=== PATIENT | female | born 1985 | race Caucasian/White ===

== ENCOUNTER → 2017-08-11 09:04 | Outpatient (CLI) | payer SELFPAY ==
[2017-08-11 10:51] LABS: Mean Corp Hgb Conc 34.3 g/gl (32-36); Mean Corpuscular Hgb 32.9 pg (27.0-32.0); Mean Corpuscular Volume 95.9 fL (81-99); Mean Platelet Vol. 10.8 fl (6.2-12.0); Platelet Count 235 K/mm3 (150-450); RBC Distribution Width CV 12.2 % (11.6-14.6); RBC Distribution Width SD 41.3 fl (35.1-43.9); Red Blood Count 3.65 M/mm3 (4.2-5.4); White Blood Count 8.1 K/mm3 (4.4-11.0)
[2017-08-11 10:52] LABS: Scan Indicated on CBC? Y/N NO
[2017-08-11 10:53] LABS: Glucose Challenge Gest 1H 50g 65 mg/dL (70-140)
== END ==
PROVIDERS: Visit Provider Obstetrics & Gynecology
DX: Z34.83 Encounter for supervision of other normal pregnancy, third trimester (principal); Z3A.00 Weeks of gestation of pregnancy not specified
CPT/HCPCS: 36415; 82950; 85027

== ENCOUNTER → 2017-10-06 11:59 | Outpatient (CLI) | payer SELFPAY ==
[2017-10-06 14:08] LABS: Group B Strep DNA By PCR Negative (Negative); Internal Control PASS; Probe Check PASS; Specimen Processing Control PASS
== END ==
PROVIDERS: Visit Provider Obstetrics & Gynecology
DX: Z36.85 Encounter for antenatal screening for Streptococcus B (principal)
CPT/HCPCS: 87081; 87653

== ENCOUNTER 2017-10-27 12:25 | Inpatient (IN) | payer SELFPAY ==
[2017-10-27 12:35] VITALS: BMI 27.0
[2017-10-27] MEDS: Lactated Ringers 1,000 ML 50 ML IV ×3 (12:50→15:31)
[2017-10-27 13:20] LABS: Hematocrit 34.9 % (37-47); Hemoglobin 11.6 g/dl (12.0-15.0); Mean Corp Hgb Conc 33.2 g/gl (32-36); Mean Corpuscular Hgb 31.5 pg (27.0-32.0); Mean Corpuscular Volume 94.8 fL (81-99); Mean Platelet Vol. 11.3 fl (6.2-12.0); Platelet Count 214 K/mm3 (150-450); RBC Distribution Width CV 13.2 % (11.6-14.6); RBC Distribution Width SD 45.3 fl (35.1-43.9); Red Blood Count 3.68 M/mm3 (4.2-5.4); White Blood Count 8.9 K/mm3 (4.4-11.0)
[2017-10-27 13:21] LABS: Scan Indicated on CBC? Y/N NO
[2017-10-27] MEDS: fentaNYL-bupivacaine (epidural) 100 ML BAG EPIDURAL (13:55)
[2017-10-27] MEDS: Oxytocin 30 units/NS 500 ml 30 UNITS/500 ML IV.SOLN IV (14:45)
[2017-10-27] MEDS: Oxytocin 30 units/NS 500 ml 30 UNITS/500 ML IV.SOLN 334 UNITS IV (16:57)
--- NOTE | 2017-10-27 17:32 | PCM.OB.VAG ---
Vaginal Delivery Maternal Presentation: Active Labor 39 3/7 wk EGA Active labor Amniotic Membrane Rupture Type: Artificial Amniotic Fluid Description: Clear Final CHRISTINA: 10/31/17 Gestational age: 39 Weeks and 3 Days Date of Procedure: 10/27/17 Pre-Operative Diagnosis: 39 3/7 wk early labor Post-Operative Diagnosis: Same Surgery/ Procedure Performed: Spontaneous Vaginal Delivery Type of Anesthesia: Epidural Description of Procedure: Epidural in place, effective. Pt feeling pressure. Burying her head in pillows reluctant to push as is speaking to her in [place] greek. of a bee viable male over intact perineum. Head delivered TERESA. Shoulders delivered easily. OP and nares bulb suctioned after shoulders delivered. Baby with spont vigorous cry and good tone to maternal abdomen. Cord clamp delayed then clamped x two and cut. PP exam : no lacerations. Abrasion at posterior perineum, dry and no repair required. Placenta delivered by spont expulsion, expression. 3V cord, normal appearing and intact with trailing membranes EBL 250 cc Pt and infant tolerated delivery well. To recovery , stable condition. Ray Cleveland counts correct x two. Presentation: Vertex, TERESA Placental Delivery Description: Spontaneous Placenta Disposition: [facility] Cord Vessel Description: 3 Vessels Cord Entanglement: None Estimated Blood Loss: 250 Infant A gender: Male (1 minute): 8 (5 minute): 9 Episiotomy Description: None Laceration: None Medications given after delivery: IV Pitocin Complications: None
--- NOTE | 2017-10-27 17:38 | OP.PCM_ITS ---
Vaginal Delivery Maternal Presentation: Active Labor 39 3/7 wk EGA Active labor Amniotic Membrane Rupture Type: Artificial Amniotic Fluid Description: Clear Final CHRISTINA: 10/31/17 Gestational age: 39 Weeks and 3 Days Date of Procedure: 10/27/17 Pre-Operative Diagnosis: 39 3/7 wk early labor Post-Operative Diagnosis: Same Surgery/ Procedure Performed: Spontaneous Vaginal Delivery Type of Anesthesia: Epidural Description of Procedure: Epidural in place, effective. Pt feeling pressure. Burying her head in pillows reluctant to push as is speaking to her in [place]. of a bee viable male over intact perineum. Head delivered TERESA. Shoulders delivered easily. OP and nares bulb suctioned after shoulders delivered. Baby with spont vigorous cry and good tone to maternal abdomen. Cord clamp delayed then clamped x two and cut. PP exam : no lacerations. Abrasion at posterior perineum, dry and no repair required. Placenta delivered by spont expulsion, expression. 3V cord, normal appearing and intact with trailing membranes EBL 250 cc Pt and infant tolerated delivery well. To recovery , stable condition. Ray Cleveland counts correct x two. Presentation: Vertex, TERESA Placental Delivery Description: Spontaneous Placenta Disposition: [facility] Cord Vessel Description: 3 Vessels Cord Entanglement: None Estimated Blood Loss: 250 Infant A gender: Male (1 minute): 8 (5 minute): 9 Episiotomy Description: None Laceration: None Medications given after delivery: IV Pitocin Complications: None
--- NOTE | 2017-10-27 17:41 | PCM.DCVAG ---
Discharge Diet: No Restrictions Discharge Activity: May Shower, May Take a Tub Bath May resume sexual activity in: 4-6 weeks Additional Activity Instructions:: Nothing in the vagina for 4-6 weeks. You may return to work/school in 6 weeks. Additional Instructions: If you experience any of the following, contact your healthcare provider. Bleeding that soaks a pad every hour for 2 hours Fever 100.4 or higher Unrelieved abdominal pain Problems urinating (including inability to urinate or burning while urinating). Visual changes Severe headache Flu-like symptoms Pain or redness in one of both of your breasts Pain, warmth, tenderness or swelling in your legs, especially the calf area Frequent nausea and vomiting Symptoms of depression or anxiety If you experience any of the following, call 911 or go to the nearest Emergency Room. Chest pain Problems breathing Seizure activity Partial or complete paralysis of a body part, slurred speech, weakness or drooping of the face, or a sudden inability to walk or hold your balance Allergies/Adverse Reactions: Allergies No Known Drug Allergies Allergy (Verified 12/07/14 07:24) Other Medications to take at Discharge Vits [Prenatabs FA] 1 tablet PO DAILY 12/07/14 Orders to be completed after discharge: Electric breast pump Time Frame: 1 Year, Location: None Selected Please Follow Up With: Toshia Thakur MD - [phone] When: Call to make an appointment with your doctor in 6 weeks. Primary Care Physician: Care Physician,No Primary [Primary Care Provider] - Proposed Discharge Date: 10/29/17
--- NOTE | 2017-10-27 17:42 | DCINST_ITS ---
Discharge Diet: No Restrictions Discharge Activity: May Shower, May Take a Tub Bath May resume sexual activity in: 4-6 weeks Additional Activity Instructions:: Nothing in the vagina for 4-6 weeks. You may return to work/school in 6 weeks. Additional Instructions: If you experience any of the following, contact your healthcare provider. * Bleeding that soaks a pad every hour for 2 hours * Fever 100.4 or higher * Unrelieved abdominal pain * Problems urinating (including inability to urinate or burning while urinating) . * Visual changes * Severe headache * Flu-like symptoms * Pain or redness in one of both of your breasts * Pain, warmth, tenderness or swelling in your legs, especially the calf area * Frequent nausea and vomiting * Symptoms of depression or anxiety If you experience any of the following, call 911 or go to the nearest Emergency Room. * Chest pain * Problems breathing * Seizure activity * Partial or complete paralysis of a body part, slurred speech, weakness or drooping of the face, or a sudden inability to walk or hold your balance Allergies/Adverse Reactions: Allergies No Known Drug Allergies Allergy (Verified 12/07/14 07:24) Other Medications to take at Discharge Vits [Prenatabs FA] 1 tablet PO DAILY 12/07/14 Orders to be completed after discharge: Electric breast pump Time Frame: 1 Year, Location: None Selected Please Follow Up With: Toshia Thakur MD - [phone] When: Call to make an appointment with your doctor in 6 weeks. Primary Care Physician: Care Physician,No Primary [Primary Care Provider] - Proposed Discharge Date: 10/29/17
--- NOTE | 2017-10-27 18:49 | NURSING ---
Pt resides in [facility]
[2017-10-27 19:37] VITALS: BP 115/70; PULSE 80; RESP 18; TEMP 37.3; O2SAT 99
[2017-10-28 00:06] VITALS: BP 93/54; PULSE 67; RESP 18; TEMP 36.8; O2SAT 98
[2017-10-28] MEDS: Ibuprofen 600 MG Tablet PO (00:23)
[2017-10-28 05:10] VITALS: BP 102/59; PULSE 71; RESP 18; TEMP 36.4
--- NOTE | 2017-10-28 07:41 | PCM.PN.OB ---
Subjective: PPD#1 Doing well. Asking about getting her tubes tied. No further childbearing desired. Baby is nursing well. Sates he is quiet. Would like to go home today if baby is released. - Physical Exam General: Alert, Oriented x3, Cooperative, No apparent distress HEENT: Atraumatic Neck: Supple Abdomen: Soft - Fundus firm NT at 1-2 cm inferior to umbilicus Neurological: Cranial nerves II-XII grossly intact Psych/Mental Status: Normal Affect Vital Signs Temp Pulse Resp BP Pulse Ox 97.6 F L 71 18 102/59 L 98 10/28/17 05:10 10/28/17 05:10 10/28/17 05:10 10/28/17 05:10 10/28/17 00:06 Oxygen Delivery Method Room Air Weight: 67 kg Body Mass Index (BMI) 27.0 Intake and Output for Last 24 Hours 10/26/17 10/27/17 10/28/17 23:59 23:59 23:59 Intake Total 2800 / 2800 Output Total 2500 / 2500 500 / 500 Balance 300 / 300 -500 / -500 Laboratory Tests Past 24 Hrs 10/27/17 10/27/17 13:05 13:05 WBC 8.9 RBC 3.68 L Hgb 11.6 L Hct 34.9 L MCV 94.8 MCH 31.5 MCHC 33.2 RDW 13.2 RDW Differential 45.3 H Plt Count 214 MPV 11.3 Blood Type A POSITIVE Antibody Screen NEGATIVE Medical Necessity - Tobacco Use Smoking Status: Never smoker Assessment/Plan PPD#1 Stable pp. Requests dischg today. RTO in 6 wk for PP check, prn sooner. Plans BTO.
[2017-10-28] MEDS: Prenatal Vits Tablet 1 TABLET PO (12:18)
[2017-10-28 13:13] VITALS: BP 116/64; PULSE 67; RESP 18; TEMP 36.7
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
[2017-10-28 16:00] VITALS: BP 138/61; PULSE 70; RESP 16; TEMP 36.8
== END 2017-10-28 18:00 | disposition home or self-care (01) | DRG 775 ==
PROVIDERS: Admitting Provider Obstetrics & Gynecology; Visit Provider Obstetrics & Gynecology
DX: O80 Encounter for full-term uncomplicated delivery (principal); Z37.0 Single live birth; Z3A.39 39 weeks gestation of pregnancy
CPT/HCPCS: 59025; 59050; 85027; 86850; 86900; 99218; J7120; G0378

== ENCOUNTER → 2017-12-04 11:38 | Outpatient (CLI) | payer SELFPAY ==
[2017-12-04 13:50] LABS: Hematocrit 38.9 % (37-47); Mean Corp Hgb Conc 33.4 g/gl (32-36); Mean Corpuscular Volume 92.6 fL (81-99); Mean Platelet Vol. 10.5 fl (6.2-12.0); Platelet Count 218 K/mm3 (150-450); RBC Distribution Width CV 12.2 % (11.6-14.6); RBC Distribution Width SD 41.8 fl (35.1-43.9); White Blood Count 6.6 K/mm3 (4.4-11.0)
[2017-12-04 13:55] LABS: Scan Indicated on CBC? Y/N NO
== END ==
PROVIDERS: Visit Provider Obstetrics & Gynecology
DX: R42 Dizziness and giddiness (principal); R55 Syncope and collapse
CPT/HCPCS: 36415; 85027

== ENCOUNTER 2018-12-07 10:20 | Day surgery (SDC) | payer SELFPAY ==
--- NOTE | 2018-11-21 02:39 | HP.PCM_ITS ---
History and Physical Date of Admission: 11/21/18 Edie Stephens Date of : 1985 HISTORY OF PRESENT ILLNESS: On 11/18/2018, Edie Stephens, a 33 year old female 5 0 0 0 5, presented for: -- Pre-Op Edie is being seen for pre op visit. Pt is having Lap bilateral Salpingectomy on 11-25-18. Medications and allergies are up to date. AM As above. Here for preop appointment for planned laparoscopic bilateral salpingectomy. She is asking multiple questions. She is self pay and is now considering an IUD instead of bilateral tubal ligation. She has not been able to tolerate pelvic exams in the office and we discussed this. Spouse is unwilling to have vasectomy, which of the sterilization procedures would be less expensive. After more prolonged discussion at the time of her preop appt, discussion of R,B,A of the laparoscopic bilateral salpingectomy and R,B,A of the Liletta and Paragaurd IUDs she is uncertain re the method she will chose. Spouse is asking how late he can pay the package sutton for surgery. (advised him to check with the [facility] re this) They will take the weekend to decide on either the IUD or surgical sterilization. EB ALLERGIES: NKDA MEDICATIONS HISTORY: Patient is also takin. Calcium 500 500 mg calcium (1,250 mg) tablet,chewable, PRN REVIEW OF SYSTEMS: GENERAL - Denies fever, or chills SKIN - Denies skin changes EYES - Denies visual changes EARS - Denies difficulty hearing NOSE - Denies nasal congestion or bleeding MOUTH - Denies sore throat or difficulty swallowing NECK - Denies pain or swelling RESPIRATORY - Denies shortness of breath or wheezing CARDIOVASCULAR - Denies palpitations or chest pain GASTROINTESTINAL - Denies nausea, vomiting, diarrhea, constipation GENITOURINARY - Denies dysuria, frequency of urination, incontinence of urine MUSCULOSKELETAL - Denies joint or muscle pain NEUROLOGICAL - Denies localized numbness or weakness PSYCHIATRIC - Denies depression or anxiety ENDOCRINE - Denies heat or cold intolerance, weight loss or gain HEMATO-IMMUNOLOGIC - Denies excessive bleeding with cuts SURGICAL HISTORY: 1. none MENSTRUAL HISTORY: LMP Known?- Approximate-Month KnownAmount/Duration - 7 days, Regularity - Regular, LMP - 10/16/18, Age Onset Menarche - 12 FAMILY HISTORY: Father - FH: Cardiomyopathy; Mother - Unknown Disease; Brother - FH: Cardiomyopathy; Sister - FH: Cardiomyopathy; Paternal Cousin - FH: Cardiomyopathy; Paternal Grandparent - FH: Cardiomyopathy; SOCIAL HISTORY: Alcohol Use - None Smoking - Never Diet - moderate, balanced diet and caffeine < 2 drinks per day Lifestyle - Exercise - none Seat Belt Use - always Employer - Homemaker Illicit Drug Use - denies use of street drugs Sexual Activity - Residence - lives w and three children Spouse-Sig Other Name - Jose Spouse-Sig Other Occupation - Self-employed - [employer] work Spouse-Sig Other Phone No - [phone] message Children Name(s) - Zully Reed ' (EB), Linda (liver transplant- biliary atresia) ' EB, Guero (EB) , Daljit Control - PHYSICAL EXAMINATION BP- 110/90 Sitting, Right arm, regular cuff Temp- 98.3 Taken Orally Weight- 131.40 lbs Height- 62.25 inch BMI:23.89 CONSTITUTIONAL - NAD, well nourished, and well developed HEENT - Normocephalic, PERRLA, EOMI NECK - no nuchal rigidity LUNGS - clear to auscultation CARDIAC - normal s1, normal s2, no s3 EXTREMITIES - No edema or calf tenderness NEUROLOGICAL - cranial nerves 2-12 intact PSYCHIATRIC - A and O to time, place, person, mood and affect ASSESSMENT: 1. Encounter For Sterilization 2. Other Specified Counseling PLAN BY DIAGNOSIS: 1. Encounter For Sterilization and Other Specified Counseling Reviewed Laparoscopic BTF, BTL (Filshie clips) and bilateral salpingectomy with potential benefit of salpingectomy to further decrease risk of ovarian cancer All questions re anticipated preop, operative and postop recovery including activity restrictions answered to patient's satisfaction. Consents signed and on chart. Still deciding on surgical sterilization vs an IUD (either Paragard, or liletta) Reminded Edie of the need for prolonged pelvic exam with IUD placement. She has not tolerated even pap smears or cervical checks easily in the office and given this the IUDs are not a good option for her Will take the weekend of November 20-2018 to decide regarding her method of contraception. If opts for laparoscopic bilateral salpingectomy, keep surgical appt as scheduled. If opts for IUD: will likely need po sedation to accomplish this. Written information/ pamphlets given on both Paragard and Liletta. Reviewed potential R,B,A of each of these. She is advised further that the Paragard may give heavy and more painful periods. The Liletta may contribute to her moodiness (though very low systemic progesterone). Visit was approximately 25 minutes with most of the time spent in discussion and counseling.
[2018-12-07 10:54] LABS: Internal QC Validated? YES +Cl - CLEAR BKGD; Pregnancy, Urine Negative Negative
[2018-12-07 10:59] VITALS: BP 123/81; PULSE 82; RESP 16; TEMP 37; O2SAT 100; BMI 24.2
--- NOTE | 2018-12-07 11:50 | PCM.DC.TUB ---
Discharge Diet: No Restrictions Discharge Activity: May Shower, May Take a Tub Bath Return to work on:: 12/09/18 Additional Activity Instructions:: Ambulate often the next week after surgery. Nothing in the vagina for 5 days. Call your doctor if you observe: Fever of 101 or Higher, Uncontrolled pain Change Dressing in (Days):: 4 Remove Dressing in (days):: 4 Cleanse incision/area with: Soap & Water, Keep Dressing Clean & Dry Additional Instructions: You may resume activity as you are comfortable after surgery-- after resting for the first day. You may have abdominal pain, gassiness or pain in your right shoulder and this normally resolves within 24-72 hrs. Take pain medication as needed for pain. Tylenol 1-2 extra strength 500 mg tabs every 8 hrs as needed. May also take EITHER two Aleve or three Ibuprofen (Advil, Motrin) every 8 hr for pain. Take the Oxycodone for more severe pain only. Allergies/Adverse Reactions: Allergies No Known Drug Allergies Allergy (Verified 12/07/18 10:50) Other Medications to take at Discharge Calcium Carbonate [Calcium] 600 mg PO DAILY 11/18/18 Magnesium 200 mg PO DAILY 11/18/18 Vitamin B Complex 1 each PO DAILY 11/18/18 Oxycodone [Oxyir] 5 mg PO Q6H PRN PRN 4 Days #12 tablet 12/07/18 The following prescriptions were given: Oxycodone [Oxyir] 5 mg PO Q6H PRN PRN 4 Days #12 tablet PRN Reason: Mod-Severe Pain (4-10/10) Primary Care Physician: Care Physician,No Primary [Primary Care Provider] - Test Results: Test results from this visit will be discussed in further detail at your follow-up appointment, if applicable. Please Follow Up With: Toshia Thakur MD - [phone] When: Make appointment for postop incision check for 1-3 wk after surgery Proposed Discharge Date: 12/07/18
--- NOTE | 2018-12-07 11:55 | DCINST_ITS ---
Discharge Diet: No Restrictions Discharge Activity: May Shower, May Take a Tub Bath Return to work on:: 12/09/18 Additional Activity Instructions:: Ambulate often the next week after surgery. Nothing in the vagina for 5 days. Call your doctor if you observe: Fever of 101 or Higher, Uncontrolled pain Change Dressing in (Days):: 4 Remove Dressing in (days):: 4 Cleanse incision/area with: Soap & Water, Keep Dressing Clean & Dry Additional Instructions: You may resume activity as you are comfortable after surgery-- after resting for the first day. You may have abdominal pain, gassiness or pain in your right shoulder and this normally resolves within 24-72 hrs. Take pain medication as needed for pain. Tylenol 1-2 extra strength 500 mg tabs every 8 hrs as needed. May also take EITHER two Aleve or three Ibuprofen (Advil, Motrin) every 8 hr for pain. Take the Oxycodone for more severe pain only. Allergies/Adverse Reactions: Allergies No Known Drug Allergies Allergy (Verified 12/07/18 10:50) Other Medications to take at Discharge Calcium Carbonate [Calcium] 600 mg PO DAILY 11/18/18 Magnesium 200 mg PO DAILY 11/18/18 Vitamin B Complex 1 each PO DAILY 11/18/18 Oxycodone [Oxyir] 5 mg PO Q6H PRN PRN 4 Days #12 tablet 12/07/18 The following prescriptions were given: Oxycodone [Oxyir] 5 mg PO Q6H PRN PRN 4 Days #12 tablet PRN Reason: Mod-Severe Pain (4-10/10) Primary Care Physician: Care Physician,No Primary [Primary Care Provider] - Test Results: Test results from this visit will be discussed in further detail at your follow- up appointment, if applicable. Please Follow Up With: Toshia Thakur MD - [phone] When: Make appointment for postop incision check for 1-3 wk after surgery Proposed Discharge Date: 12/07/18
--- NOTE | 2018-12-07 12:00 | FALS_PTH ---
PATIENT: CHERI SHINE LOC: [facility] U#:[id number] AGE/SX: 33/F ROOM: RE12/07/[address]: Dr. Toshia Thakur MD : 1985 BED: DIS: 12/07/2018 SPEC #: [id number] RECD: 12/07/18 13:03 STATUS: ARCHANA SHERINE #: [id number] SHIVA: 12/07/18 12:[address]: Toshia Thakur DEPT: SURGICAL PATHOLOGY RECD BY: Sushant Matt ENTERED: 12/07/18 13:48 SP TYPE: FALL TUBES OTHR DR: No Primary Care Phys Tissues: Fallopian tube Procedures: Surgery Specimen Level II HEADER OPERATION: Laparoscopic salpingectomy PRE-OP DIAGNOSIS: Patient requests sterilization TISSUE SUBMITTED: Bilateral fallopian tubes MICROSCOPIC DIAGNOSIS Bilateral fallopian tubes, salpingectomy: Bilateral fallopian tubes including fimbrial ends, no pathologic diagnosis. SJ:stephanie 12/08/18 MICROSCOPIC DESCRIPTION Slides are reviewed. GROSS DESCRIPTION Received is one container labeled with the patient's name and designated bilateral fallopian tubes. The specimen consists of bilateral fallopian tubes including fimbrial ends in multiple pieces. One of the segments shows fimbrial end and measures 3.5 cm in length and 0.6 cm in diameter. The second segment of fallopian tube without the fimbrial end measures 3.5 cm in length and 0.5 cm in diameter. The third piece without fimbrial end measures 4.5 cm in length and 0.5 cm in diameter. The two smaller pieces with fimbrial end measures in aggregate 2 x 1 x 0.5 cm. Industrial Hygiene Technician sections from all four pieces are submitted in two cassettes. / SJ:stephanie 12/07/18 TC:4 [facility]: [id number] x2
[2018-12-07] MEDS: Bupiv/Epi 0.5% Mpf 30 ML Vial (12:25)
--- NOTE | 2018-12-07 12:31 | PCM.OPRPT ---
Report of Operation Date of Procedure: 12/07/18 Pre-Operative Diagnosis: sterilization request Post-Operative Diagnosis: same Surgery/Procedure Performed:: Laparoscopic bilateral salpingectomy Description of Surgical Findings:: Findings: There is a normal-appearing retroverted uterus. Fallopian tubes and ovaries are within normal limits. Gross inspection of the bowel, omentum, liver edge are also within normal limits. Photos were taken of the uterus and ovaries after the bilateral partial salpingectomy, and of the right upper quadrant/liver edge. boilermaker welder: Kassandra Cardona Type of Anesthesia:: General Anesthesiologist: Herlinda Conley CRNA Specimen's removed: Bilateral fallopian tubes Drains: red montalvo prior to case Estimated Blood Loss (mL): 20 cc Fluids Replaced: LR Description of Procedure: Narrative account: After the risks, benefits, alternatives of the procedure have been reviewed with the patient, informed consent was obtained. The patient was taken to the operating room with an IV running. She was positioned on the operating table in dorsal supine position, where she was given general anesthesia. Once asleep she was repositioned into the dorsal lithotomy position and prepped and draped in the usual sterile fashion. A red Montalvo catheter was used to drain the bladder prior to initiating the case. A single-toothed tenaculum and Georgie cannula were placed into the cervix to allow manipulation of the cervix and uterus during the case. Attention was then turned to the anterior abdominal wall where 0.5% percent Marcaine with epinephrine was instilled at the suprapubic and infraumbilical skin and at a point midway between the two, in the midline. Skin incisions were then created in the midline at the suprapubic skin, at the infraumbilical skin, and at a point in the midline midway between the two. While maintaining upward traction of the anterior abdominal wall, a Veress needle was inserted through the umbilical incision into the peritoneal cavity. There was free drop of saline, low opening pressure and free flow of CO2 noted. Once the intra-abdominal pressure had reached 12 mmHg the Veress needle was removed and a bladeless 5 mm trocar was inserted through the infraumbilical skin incision into the peritoneal cavity. Correct placement was confirmed using the scope. Under direct visualization then with the patient in Trendelenburg position, a bladeless 5 mm trocar was inserted in through the suprapubic skin incision into the peritoneal cavity and at the midlower abdominal incision midway between the infraumbilical and suprapubic trochars. The uterus was anteverted and both ovaries and fallopian tubes were within normal limits. The left fallopian tube was grasped and retracted medially and using a LigaSure device the right fallopian tube was excised from the ovary and mesosalpinx to the level of the uterine fundus. Excellent hemostasis was noted at the excision site. The left fallopian tube was brought through the suprapubic trocar and set aside for later pathology review. There was some bleeding noted at the exicison site of the L fallopian tube near the left ovary. This area was grasped and sealed with the Ligasure device. Excellent hemostasis was then noted. In a similar manner the right fallopian tube was grasped and retracted medially and the fallopian tube was excised and removed from the abdominal cavity through the suprapubic trocar. The fallopian tubes were sent to pathology. Excellent hemostasis was noted by visualization of the pelvis, ovaries, and remaining mesosalpinx. The pelvis was irrigated. The surgical pedicles were dry. Mp was applied for additional hemostasis. Photos were taken of the uterus and bilateral remaining ovaries and of the right upper quadrant and liver edge. At this point the procedure was terminated. The pneumoperitoneum was reduced and the instruments and trochars were removed from the anterior abdominal wall skin. The skin incisions were closed with 4-0 Monocryl in a subcuticular fashion Dermabond and op sites were applied to the skin. The single-toothed tenaculum and Georgie cannula were then removed from the vagina. The patient was returned to dorsal supine position. She was awakened from general anesthesia. She was transferred to the recovery room bed in stable condition after tolerating the procedure well. Sponge, lap, needle and instrument counts were correct x two. Medications given preop and intra-op included: 10 cc of half percent Marcaine with epinephrine used as a subcutaneous block, and Toradol 30 mg IV x1. For a complete listing of medications given preop and intra-op please see the anesthesia record. - Complications None - Admit VTE Documentation VTE Present on Admission: No VTE Mechan Device Prophylaxis: SCD's VTE Pharm Prophylaxis ordered?: No
[2018-12-07 12:49] VITALS: BP 112/73; BP 123/81; PULSE 65; RESP 16; TEMP 36.2; O2SAT 98
[2018-12-07 13:00] VITALS: BP 113/75; BP 123/81; PULSE 59; RESP 18; O2SAT 100
[2018-12-07 13:15] VITALS: BP 123/81; BP 96/84; PULSE 62; RESP 18; O2SAT 98
[2018-12-07 13:27] VITALS: BP 123/81; BP 126/81; PULSE 62; RESP 18; TEMP 36.8; O2SAT 100
[2018-12-07 14:05] VITALS: BP 123/81
== END 2018-12-07 14:38 | disposition home or self-care (01) ==
LOC: SDC 10:23 → AC 10:24
PROVIDERS: Referring Provider Obstetrics & Gynecology; Visit Provider Obstetrics & Gynecology
PROC: (CPT 58661; principal; 2018-12-07 11:45)
DX: Z30.2 Encounter for sterilization (principal)
CPT/HCPCS: 58661; 81025; 88302; J7120; J2405

== ENCOUNTER 2023-02-26 16:30 | Emergency (ER) | payer OTHER, SELFPAY ==
[2023-02-26 16:32] VITALS: BP 147/98; PULSE 92; RESP 18; TEMP 36.2; O2SAT 100; BMI 25.3
--- NOTE | 2023-02-26 17:32 | RAD_ITS ---
STUDY: X-RAY CHEST REASON FOR EXAM: Female, 37 years old. Chest pain TECHNIQUE: Single AP portable view of the chest. COMPARISON: September 11, 2021 FINDINGS: The lungs are clear and expanded. There is no demonstrated pleural abnormality. Normal size heart. Normal mediastinum and stewart. Normal visualized pulmonary arteries. Normal visualized aortic arch and descending thoracic aorta. Normal visualized thoracic spine. Normal visualized ribs, clavicles, and shoulders. There is no demonstrated abnormality of the visualized soft tissue structures of the upper abdomen. RAD/Chest 1 View (Portable) IMPRESSION: Normal x-ray examination of the chest. Electronically Signed: Lefty Estrada MD at 18:29 EDT ,
[2023-02-26 17:48] LABS: Absolute Lymphocyte Count 2.27 X10^3/uL (0.83-4.51); Absolute Neutrophil Count 3.4 X10^3/uL (2.0-7.7); Basophil# 0.04 X10^3/uL; Basophil% 0.6 % (0-1); Eosinophil# 0.09 X10^3/uL; Eosinophils% 1.4 % (0-5); Hematocrit 39.3 % (37-47); Hemoglobin 13.4 g/dL (12.0-15.0); Lymphocyte # 2.27 X10^3/ul (0.83-4.51); Lymphocyte % 36.3 % (19-41); Mean Corp Hgb Conc 34.1 g/dL (32-36); Mean Corpuscular Hgb 31.3 pg (27.0-32.0); Mean Corpuscular Volume 91.8 fL (81-99); Mean Platelet Vol. 10.3 fl (6.2-12.0); Monocyte# 0.45 X10^3/uL; Monocyte% 7.2 % (0-10); NRBC Flagged by Analyzer 0 % (0-5); Neutrophil # 3.39 X10^3/uL (2.7-7.7); Neutrophil % 54.3 % (47-70); Platelet Count 258 K/mm3 (150-450); RBC Distribution Width CV 12.1 % (11.6-14.6); RBC Distribution Width SD 40.9 fl (35.1-43.9); Red Blood Count 4.28 M/mm3 (4.2-5.4); White Blood Count 6.3 K/mm3 (4.4-11.0)
[2023-02-26 18:06] LABS: Anion Gap 5 (5-15); BUN 10 mg/dL (7-18); BUN/Creat Ratio 14.3 RATIO (10-20); Calcium,Total 9.2 mg/dL (8.5-10.1); Chloride 107 mmol/L (98-107); EST Glomerular Filtration Rate 101 mL/min (>60); Est Glom Filt Rate - Afr Amer 122 mL/min (>60); Estimated Creatinine Clearance 87.87 ml/min; Glucose 87 mg/dL (74-106); Potassium 3.3 mmol/L (3.5-5.1); Sodium Level 140 mmol/L (136-145); Troponin-I HS (w/2H Reflex) < 3 pg/mL (3.0-54.0)
[2023-02-26 18:27] VITALS: BP 132/93; PULSE 83; RESP 13; O2SAT 98
[2023-02-26 19:37] LABS: D-Dimer Quantitative (DVT/PE) < 0.27 FEU/ug/m (0.27-0.49)
[2023-02-26 19:44] LABS: Reflex Troponin-HS? (from REC) Y
[2023-02-26 20:00] VITALS: BP 112/86; PULSE 70; RESP 16; O2SAT 98
[2023-02-26 20:23] LABS: Troponin-I HS 3 pg/mL (3.0-54.0)
--- NOTE | 2023-02-26 21:13 | ED.VIS.CHEST ---
HPI History of Present Illness Chief Complaint: Palpitations Informant: patient Onset/Context/Timing Onset: Days (4) Activity at onset: gradual Timing: Intermittent Quality: Positive for - (Jumps) Location: Left Chest Worsened By: Exertion Relieved By: Nothing Associated Symptoms: Positive for Nausea, Cough (Mild), Lightheadedness (Mild) and Palpitations; Negative for Vomiting, Diaphoresis, Dyspnea, Fever or Acid Reflux Narrative Narrative: Patient presents with palpitations that have been intermittent over the last 4 days. Patient states it feels like her heart is jumping. Patient states it is mainly over the left side of her chest. Patient states she also feels it in her back. Patient admits to a mild cough and some nausea. Patient denies any vomiting. Patient also admits to some lightheadedness. Patient denies any fevers or chills. Patient states her palpitations are worse with exertion. Nothing makes them better. CVD Risk Factors: Positive for Family History 1' </=55; Negative for Hypertension, Diabetes, Hypercholesterolemia or Smoking PE Risk Factors: Negative for Recent Travel/Surgery, Recent Immobilization, Prior DVT or PE, Cancer or OCP + Smoking + >/=35 PFSH PFSH Home Medications NK 02/26/23 [History Last Taken Unknown] Allergy/AdvReac Type Severity Reaction Status Date / Time No Known Drug Allergies Allergy Other Verified 02/26/23 16:32 Surgical History History of salpingectomy Social History Smoking Status: Never smoker [facility] ED Constitutional Constitutional ED: Denies chills or fever(s) Eyes Eyes: Denies blurry vision or change in vision ENT ENT ED: Denies rhinorrhea or sore throat Cardiovascular Cardiovascular: Reports as per HPI, chest pain and palpitations Respiratory/Chest Respiratory/Chest: Reports cough; Denies dyspnea Gastrointestinal Gastrointestinal: Reports nausea; Denies vomiting Genitourinary Genitourinary ED: Denies dysuria or hematuria Musculoskeletal Musculoskeletal: Reports back pain; Denies neck pain Integumentary Denies abscess or rash Neurologic Neurologic: Denies headache(s) or weakness Allergic/Immunologic Allergic/Immunologic ED: Denies mouth swelling or urticaria EXAM Physical Exam Const Vital Signs: 02/26/23 16:32 02/26/23 18:20 02/26/23 18:20 Temperature 97.2 F L Temperature Source Temporal Pulse Rate 92 Respiratory Rate 18 Respiratory Effort Normal Blood Pressure 147/98 H Blood Pressure Mean 114 Pulse Ox 100 Oxygen Delivery Method Room Air Room Air 02/26/23 18:27 02/26/23 20:00 Temperature Temperature Source Pulse Rate 83 70 Respiratory Rate 13 16 Respiratory Effort Blood Pressure 132/93 H 112/86 H Blood Pressure Mean 106 94 Pulse Ox 98 98 Oxygen Delivery Method Room Air Room Air Positive well nourished and well developed General Appearance ED: well developed and NAD HEENT Reports moist mucous membranes Neck supple and no JVD Resp normal respiratory effort and clear to auscultation bilaterally Cardio regular rate, regular rhythm and no murmurs GI normal to inspection, nondistended, normoactive bowel sounds and non-tender Palpation: soft Extremity normal to inspection General Extremety ED: Negative for edema or tenderness General Extremity: Negative for edema Neuro oriented x3, CN's II-XII intact bilaterally and no sensory deficits noted Sensorium / Orientation: alert Motor Exam: strength 5/5 throughout Psych mental status grossly normal Skin no rashes or lesions noted Heart Score History: Slightly/Non-Suspicious ECG: Normal Age: </= 45 years Risk Factors: 1 or 2 Risk Factors Troponin: </= Normal Limit Score: 1 MDM MDM MDM Narrative Medical decision making narrative: Differential diagnosis includes cardiac dysrhythmia, cardiac ischemia, pneumonia, pulmonary embolism, electrolyte abnormality, and anxiety. EKG will be obtained to assess for cardiac dysrhythmia and cardiac ischemia. Chest x-ray will be obtained to assess for pneumonia and pneumothorax. D-dimer will be obtained to assess for pulmonary embolism. CBC will be obtained to assess for leukocytosis and anemia. Basic metabolic profile will be obtained to assess for electrolyte abnormality and renal function. High-sensitivity troponin will be obtained to assess for cardiac ischemia. 2-hour repeat high-sensitivity troponin will be obtained to assess for ongoing cardiac ischemia. Lab Data Attestation: I reviewed the patient's lab results. Lab results narrative: CBC was reviewed and was within normal limits. Basic metabolic profile was reviewed and was essentially within normal limits. D-dimer was reviewed and was normal at less than 0.27. High-sensitivity troponin was reviewed and was less than 3. 2-hour repeat high-sensitivity troponin was reviewed and was normal at 3. Labs: Laboratory Results - last 24 hr 02/26/23 02/26/23 02/26/23 17:40 19:19 19:50 WBC 6.3 RBC 4.28 Hgb 13.4 Hct 39.3 MCV 91.8 MCH 31.3 MCHC 34.1 RDW Std Deviation 40.9 RDW Coeff of Yoko 12.1 Plt Count 258 MPV 10.3 Immature Gran % (Auto) 0.200 Neut % (Auto) 54.3 Lymph % (Auto) 36.3 Major % (Auto) 7.2 Eos % (Auto) 1.4 Baso % (Auto) 0.6 Absolute Neuts (auto) 3.4 Absolute Lymphs (auto) 2.27 Nucleated RBC % 0 D-Dimer Quant (PE/DVT) < 0.27 L Sodium 140 Potassium 3.3 L Chloride 107 Carbon Dioxide 28.0 Anion Gap 5 BUN 10 Creatinine 0.70 Estim Creat Clear Calc 87.87 Est GFR (MDRD) Af Amer 122 Est GFR (MDRD) Non-Af 101 BUN/Creatinine Ratio 14.3 Glucose 87 Calcium 9.2 Troponin I High Sens < 3 L 3 Radiography Chest X-Ray - ED: 1 View, Read by ED Physician, Read by Radiologist and No Acute Disease Diagnostic Testing: Clinical Impression(s) from Imaging Studies Chest X-Ray 02/26/23 17:32 IMPRESSION: Normal x-ray examination of the chest. Electronically Signed: Lefty Estrada MD at 18:29 EDT , Portable 1 view chest x-ray was obtained. On my independent interpretation, lung nieves are clear. There is normal cardiac silhouette. Bony thorax is normal. There is no acute process noted. Radiologist also interpreted the x-ray and agrees. EKG Initial EKG: Attestation: I personally reviewed and interpreted this EKG as follows: Interpretation: Sinus Rhythm (96 with occasional PVCs) and No Acute Injury Pattern Comments: EKG was obtained. On my independent interpretation, it showed a normal sinus rhythm with occasional PVCs with a rate of 96. [place] interval, QRS interval, and QTc intervals were all normal. [place] was normal. There are no acute ST or T wave changes. Treatment and Re-Evaluation :: Patient was advised of her findings. Patient is feeling better on reevaluation. Patient has a HEART score of 1. Patient was advised that this is low risk for acute cardiac event. Patient was instructed to follow-up with her primary care physician in 5 to 7 days for further evaluation. Patient and spouse understood and were agreeable with the plan. All questions were answered. Discharge Plan Triage Chief Complaint: Palpitations ED Provider: Suleman Plascencia Dx/Rx/DC Orders Clinical Impression: Palpitations, Chest pain Instructions: ED Chest Pain, Uncertain Cause, ED Palpitations Prescriptions: No Action NK Primary Care Provider: Care Physician,No Primary Referrals: Care Physician,No Primary [Primary Care Provider] - Doctor,Your [Non-Staff] - 3-5 Days Disposition Disposition: Home, Self Care
[2023-02-26 21:19] VITALS: BP 108/77; PULSE 72; RESP 16; O2SAT 98
== END 2023-02-26 21:46 | disposition home or self-care (01) ==
PROVIDERS: Emergency Provider Emergency Medicine; Visit Provider Emergency Medicine
DX: R00.2 Palpitations (principal); R07.9 Chest pain, unspecified; R11.0 Nausea; R05.9 Cough, unspecified; R42 Dizziness and giddiness
CPT/HCPCS: 71045; 80048; 84484; 85025; 85379; 93005; 99284; A4216